=== PATIENT | male | born 1980 | race Caucasian/White ===

== ENCOUNTER 2019-11-20 23:57 | Emergency (ER) | payer OTHER ==
[2019-11-21 00:30] VITALS: BP 151/86; PULSE 75; TEMP 98; BMI 28.1
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
[2019-11-21] MEDS ORDERED: METHOCARBAMOL 500 MG TABLET PO ONE (01:16)
[2019-11-21] MEDS ORDERED: KETOROLAC TROMETHAMINE 60 MG/2 ML VIAL IM ONE (01:16)
[2019-11-21] MEDS ORDERED: LIDOCAINE 5% TOPICAL PATCH TP ONE (01:16)
[2019-11-21] MEDS ORDERED: KETOROLAC TROMETHAMINE 60 MG/2 ML VIAL ONE (01:26)
[2019-11-21] MEDS ORDERED: METHOCARBAMOL 500 MG TABLET ONE (01:26)
[2019-11-21] MEDS ORDERED: LIDOCAINE 5% TOPICAL PATCH ONE (01:27)
[2019-11-21] MEDS ORDERED: LIDOCAINE PATCH REMOVAL MC SCH (22:00)
== END 2019-11-21 05:25 | disposition home or self-care (01) ==
LOC: JER 23:57
PROC: 3E0233Z Introduction of Anti-inflammatory into Muscle, Percutaneous Approach (ICD-10-PCS; principal; 2019-11-20)
DX: S39.82XA Other specified injuries of lower back, initial encounter (principal); M54.5 Low back pain; X50.1XXA Overexertion from prolonged static or awkward postures, initial encounter; Y93.F9 Activity, other caregiving; Y92.118 Other place in children's home and orphanage as the place of occurrence of the external cause; Y99.0 Civilian activity done for income or pay
CPT/HCPCS: 72070-TC-FY; 72100-TC-FY; 99284-25